=== PATIENT | female | born 2005 | race Caucasian/White ===

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

== ENCOUNTER 2025-04-25 20:45 | Outpatient (CLI) | payer MEDICAID, SELFPAY ==
[2025-04-25 21:13] VITALS: BP 126/78; PULSE 81
[2025-04-25 21:33] VITALS: BMI 37.5
[2025-04-25 22:13] LABS: Glucose Urine UA Negative (Normal); Nitrate Urine Negative (Negative); Specific Gravity, Urine 1.018 (1.005-1.030)
[2025-04-25 23:13] VITALS: BP 124/73; PULSE 68; TEMP 35.7
[2025-04-25 23:20] VITALS: BP 124/73; PULSE 68; RESP 15; TEMP 36.7; O2SAT 99
== END 2025-04-25 23:21 | disposition home or self-care (01) ==
LOC: OPOB 20:57 → OBGYN 20:58
PROVIDERS: PCP Pediatrics Adolescent Medicine; Visit Provider Family Medicine
DX: O26.899 Other specified pregnancy related conditions, unspecified trimester (principal); Z3A.00 Weeks of gestation of pregnancy not specified; R20.0 Anesthesia of skin; R25.2 Cramp and spasm
CPT/HCPCS: 81001; 99211; J7030